=== PATIENT | male | born 1985 | race Two or more races ===

== ENCOUNTER 2020-09-22 10:29 | Emergency (ER) | payer MEDICAID, OTHER, SELFPAY ==
[~2020-09-22] VITALS: Ht 182.9 cm; Wt 82.0 kg
[2020-09-22 10:44] VITALS: BP 141/77
--- NOTE | 2020-09-22 10:51 | NUR ---
PT REFUSES IV. NOTIFIED
[2020-09-22 11:15] LABS: BASOPHILS % (AUTO) 1 % (0-1); EOSINOPHILS % (AUTO) 1 % (1-7); LYMPHOCYTES % (AUTO) 14 % (22-44); MEAN CORPUSCULAR HEMOGLOBIN 31.1 pg (27.5-34.5); MEAN CORPUSCULAR HGB CONC 33.3 g/dL (33.2-36.2); MEAN PLATELET VOLUME 8.5 fL (7.4-10.4); MONOCYTES % (AUTO) 7 % (2-9); NEUTROPHILS % (AUTO) 77 % (42-75); PLATELET COUNT 297 x10^3/uL (130-400); RED BLOOD COUNT 4.94 x10^6/uL (4.38-5.82); RED CELL DISTRIBUTION WIDTH 14.4 % (9.4-14.8)
--- NOTE | 2020-09-22 11:17 | NUR ---
pt requests to leave AMA. notified. pt signed paper. wheelchair provided. girlfriend at bedside to help him.
[2020-09-22 11:20] LABS: MD NO
[2020-09-22 11:22] LABS: ALBUMIN 3.6 g/dL (3.4-5.0); ANION GAP 4 mmol/L (5-15); CALCIUM 9.5 mg/dL (8.5-10.1); CHLORIDE 107 mmol/L (98-107)
[2020-09-22 11:23] LABS: CREATININE 0.93 mg/dL (0.7-1.3)
== END 2020-09-22 11:20 | disposition left against medical advice (07) ==
LOC: ED 11:00
DX: T40.1X1A Poisoning by heroin, accidental (unintentional), initial encounter (principal); R00.0 Tachycardia, unspecified; R07.89 Other chest pain; R40.0 Somnolence; Y92.89 Other specified places as the place of occurrence of the external cause
CPT/HCPCS: 36415; 71045; 80048; 82040; 85025; 93005; 99285